=== PATIENT | female | born 1935 | race Caucasian/White ===

== ENCOUNTER 2016-06-08 07:55 | Observation (INO) ==
--- NOTE | 2016-06-05 21:33 | Discharge Summary ---
<JennyferjessieMelvi Palomo - Last Filed: 06/07/16 16:40> Date of Encounter: 06/07/16 - Discharge Diagnosis (1) Loosening of shoulder joint prosthesis Priority: Primary Status: Acute Qualifiers: Encounter type: initial encounter Qualified Code(s): T84.038A - Mechanical loosening of other internal prosthetic joint, initial encounter; Z96.619 - Presence of unspecified artificial shoulder joint (2) Chronic pain Priority: Secondary Status: Chronic Comments: Brandon 7.5/325 q 6 hours - Chronic pain medication. Hold this. Take Oxycodone 5mg for pain Qualifiers: Chronic pain type: other chronic pain Qualified Code(s): G89.29 - Other chronic pain - Discharge Medications Home Medications: OxyCODONE Immed Rel [Roxicodone 5 MG] 5 - 10 mg PO Q6HR PRN #40 tablet 06/05/16 [Rx] Aspirin 325 mg PO DAILY 06/08/16 [History] Carvedilol 3.125 mg PO BID 06/08/16 [History] Levothyroxine [Synthroid] 25 mcg PO 0630 06/08/16 [History] Allergies/Adverse Reactions: Allergies Erythromycin Base Allergy (Verified 06/08/16 08:37) Hives Penicillins Allergy (Verified 06/08/16 08:37) Rash estrogens, conjugated [From Premarin] Adverse Reaction (Verified 06/08/16 08:37) Migraine gentamicin [From Garamycin] Adverse Reaction (Verified 06/08/16 08:37) Headache Primary care physician: Hyacinth Mg - Patient Status Disposition: Home, Self-Care Condition: Good - Discharge Instructions Follow Up With: Zev Ahmadi MD [Partnered Physician] - Hyacinth Mg MD [Primary Care Provider] - Additional Instructions: Discharge Instructions: Total Shoulder Please call [facility] ([phone]), your Primary Care Physician, or report to the Emergency Room if you have any of the following symptoms: Nausea, vomiting, fever greater that 101.5, swelling, chest pain, shortness of breath, increased pain/redness/drainage/odor for your incision site, numbness/ tingling, or any other concerning symptoms. ACTIVITY: Always keep your arm in the sling. Do not raise your arm away from your body. Do not use your arm to help with getting in or out of bed. No weight bearing permitted. Only perform those exercises given to you by your therapist. MEDICATIONS: Upon discharge resume your home medications. Take all the medications as prescribed. Take a stool softener if taking narcotic pain medications. Stool softeners are only effective if you drink enough fluids. Drink 6-8 glass of water or fluids a day, unless this is not allowed for another health problem. Despite using stool softeners, if you haven't had a bowel movement in 3 days, please switch to a gentle laxative. Gentle laxatives are sold over the counter. You should have a bowel movement within 24 hours, if not call the office. You will be discharged from the hospital with a prescription for pain medication. You are encouraged to decrease the use of narcotic pain medication as tolerated. Should you require a refill, please call the office. [facility] prescribes narcotic pain medication for only 4-6 weeks after surgery. If you require pain medication beyond this time period, you may be referred to your Primary Care Physician or to the Pain Clinic for further evaluation. Plan ahead for refills on pain medication as many narcotics either need to be picked up at the office or mailed. It is best to call 48-72 hours in advance of needing a prescription refill so you don't run out of medication. To help control the post-operative pain, you may take NSAIDs (Aleve,Advil, Motrin, ibuprofen, naprosyn) or Tylenol as prescribed on the bottle in addition to the pain medication. ANTICOAGULATION (blood thinners): Continue your Aspirin, Lovenox or Coumadin as prescribed to help prevent a blood clot in the leg or in the lungs. As long as your incision remains dry and you tolerate the NSAIDs (Aleve, Advil, Motrin, ibuprofen, naprosyn), it is OK to use the NSAIDS while you are taking your anticoagulation medication. Should your incision start to drain, stop the NSAID and contact our office. Common symptoms of blood clot in the legs include: localized pain, swelling, calf tenderness, redness or discoloration of the skin. Blood clot in the lung symptoms include: shortness of breath, rapid pulse, sweating, and chest pain that worsens with deep breathing, coughing up blood, lightheadedness, and feelings of anxiety. If you experience any of these symptoms notify your physician immediately, go to the emergency room, or if having trouble breathing , call 911. WOUND CARE: Leave the dressing on for 7 days. You may change the dressing if it becomes saturated greater than 50%. You can shower but not a tub bath or submerge your incision in water. Wash your hands with antibacterial soap, rinse and dry prior to any wound care. If you have rebekah the visiting nurse or rehab facility can remove the stapes 10-14 days after surgery and place steri -strips across the wound. Leave the steri-strips in place until they fall off on their won. You may let water from the shower run on top of the steri- stirips. If you do not have a visiting nurse or rehab facility, you will need to return to the office at 10-14 days for the rebekah to be removed. FOLLOW-UP: Please follow up with your surgeon in the orthopedic clinic, as scheduled - Hospital Course Hospital course: Ms. Bui is a 80 year old female - Time Spent with Patient Total time spent providing and/or coordinating discharge services: <Zev Ahmadi - Last Filed: 06/09/16 08:19> Date of Encounter: 06/09/16 Time of Encounter: 08:19 - Discharge Diagnosis (1) Loosening of shoulder joint prosthesis Priority: Primary Status: Acute Qualifiers: Encounter type: subsequent encounter Qualified Code(s): T84.038D - Mechanical loosening of other internal prosthetic joint, subsequent encounter; Z96.619 - Presence of unspecified artificial shoulder joint (2) Chronic pain Priority: Secondary Status: Chronic Qualifiers: Chronic pain type: other chronic pain Qualified Code(s): G89.29 - Other chronic pain (3) Epistaxis Priority: Secondary Status: Acute Primary care physician: Hyacinth Mg - Patient Status Functional capacity at discharge: independent ambulation Overall status at discharge: patient is progressing back to baseline - Hospital Course Hospital course: Ms. Bui is a 80 year old female The patient had an uneventful postoperative course. They received antibiotics and physical therapy and were discharged in stable condition. There will follow -up in the office in 2 weeks. - Time Spent with Patient Total time spent providing and/or coordinating discharge services:
[2016-06-08] MEDS ORDERED: Ringers Solution, Lactated 1,000 ML IVC SCH ×4 (08:15→12:32)
--- NOTE | 2016-06-08 08:15 | Anesthesia Evaluation PreOp ---
Date of Encounter: 06/08/16 - Past History Alcohol Use: none Drug use: none Medications and Allergies HYDROcodone/Acet 5/325 mg [[place]el 5-325 mg] 1 tab PO Q4H PRN #15 tab 06/05/16 [Rx ] OxyCODONE Immed Rel [Roxicodone 5 MG] 5 - 10 mg PO Q6HR PRN #40 tablet 06/05/16 [Rx] Allergies Erythromycin Base Allergy (Verified 05/07/15 14:38) Hives Penicillins Allergy (Verified 05/07/15 14:38) Rash estrogens, conjugated [From Premarin] Adverse Reaction (Verified 05/07/15 14:38) Migraine gentamicin [From Garamycin] Adverse Reaction (Verified 05/07/15 14:38) Headache Anesthesia Results - Labs Laboratory Tests 06/05/16 06/05/16 06/05/16 09:37 09:37 09:37 WBC 9.5 Hgb 12.4 Hct 37.7 Plt Count 199 INR 1.2 Sodium 139 Potassium 3.9 Chloride 107 Carbon Dioxide 22 BUN 25 H Creatinine 0.96
--- NOTE | 2016-06-08 08:23 | Anesthesia Evaluation PreOp ---
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) Other Medical History: Other (Breast CA) Anesthesia History: No Prior Anesthetic Complications, Past Anesthesia (Left MRM , Pacemaker, C/S, GB, Right TSR) : No Alcohol Use: none Drug use: none Medications and Allergies HYDROcodone/Acet 5/325 mg [[place] 5-325 mg] 1 tab PO Q4H PRN #15 tab 06/05/16 [Rx ] OxyCODONE Immed Rel [Roxicodone 5 MG] 5 - 10 mg PO Q6HR PRN #40 tablet 06/05/16 [Rx] Allergies Erythromycin Base Allergy (Verified 05/07/15 14:38) Hives Penicillins Allergy (Verified 05/07/15 14:38) Rash estrogens, conjugated [From Premarin] Adverse Reaction (Verified 05/07/15 14:38) Migraine gentamicin [From Garamycin] Adverse Reaction (Verified 05/07/15 14:38) Headache - Meds/Allergy Pre-op Review Medications Reviewed: Yes Allergies Reviewed: Yes Beta Blockers on Current Med List: No Anesthesia Results - Labs Laboratory Tests 06/05/16 06/05/16 06/05/16 09:37 09:37 09:37 WBC 9.5 Hgb 12.4 Hct 37.7 Plt Count 199 INR 1.2 Sodium 139 Potassium 3.9 Chloride 107 Carbon Dioxide 22 BUN 25 H Echo 02/02/16 EF - 60% Min valvular dx - Imaging EKG: image reviewed (Electronic atria pacemaker) Anesthesia Exam O2 Sat Height 1.71 m Height 1.71 m Weight 64.41 kg Weight 64.41 kg O2 Sat by Pulse Oximetry 99 Vital Signs Temp Pulse Resp BP Pulse Ox 98.1 F 89 18 115/73 99 06/08/16 08:10 06/08/16 08:10 06/08/16 08:10 06/08/16 08:10 06/08/16 08:10 - HEENT Pupil (Motor): Pupils equal, EOMI Mallampati: II Teeth: Normal (Loose 3rd Left upper tooth) Oral Opening: Greater than 3 - UNDER WATER ASSISTANT LOC: Oriented UNDER WATER ASSISTANT Motor: Normal LLE, Normal Face, Deficit RUE (Slight Weakness), Deficit RLE ( Slight Weakness) UNDER WATER ASSISTANT Sensory: Normal: RUE, LUE, RLE, LLE, Face - Cardiac Rhythm: Regular Murmur: None JVD: No Carotid Bruit: No - Pulmonary Breath Sounds: bilateral Clear Respiratory Effort: Symmetrical Anesthesia Assess/Plan ASA Score: 3 Modified Michael Scale for Level of Consciousness: Cooperative, oriented, and tranquil Anesthetic Plan: General, Regional (Right Brachial Plexus block) Autologous Blood: Yes Monitoring Plan: Standard Monitors Recovery Plan: PACU
[2016-06-08] MEDS ORDERED: Lidocaine 1% 20 ML MDV ID ONE (08:31)
[2016-06-08] MEDS ORDERED: CeFAZolin Pre 2,000 MG/100 ML 2,000 MG/100 ML BAG IVPB ONE (08:31)
--- NOTE | 2016-06-08 08:33 | History & Physical Report ---
Date of Encounter: 06/08/16 Time of Encounter: 08:32 24 Hour HP Update - Instructions Instructions: If the History and Physical is less than 30 days old and was completed prior to A.M. admission and or procedure and has NOT been updated on calendar day of procedure please complete this update prior to performing procedure. - Update Patient reports changes in Medical Condition: No Changes in assessment/condition: No Changes in Medication: No Preop tests/diagnostics Reviewed: No Pre-Op MRSA Screen: Negative Surgery Remains Indicated: Yes Consent for Planned Operative Procedure(s) Verified: Yes - Pre-Operative Checklist Preoperative Checklist Indicated: No Prophylactic Antibiotic Ordered: Yes Is VTE Prophylaxis Indicated?: Yes
[2016-06-08] MEDS ORDERED: Clindamycin 900 MG/50 ML 900 MG/50 ML IV.SOLN IVPB ONE (08:51)
[2016-06-08] MEDS ORDERED: *HR* FentaNYL (PF) 100 MCG/2 ML VIAL ONE (08:52)
[2016-06-08] MEDS ORDERED: Albuterol 2.5 MG/3 ML NEBULIZER ONE (08:53)
[2016-06-08] MEDS ORDERED: *HR* Midazolam HCl 2 MG/2 ML VIAL ONE (08:53)
[2016-06-08] MEDS ORDERED: *HR* Propofol 200 MG/20 ML VIAL IVP ONE (08:53)
[2016-06-08] MEDS ORDERED: Lidocaine -MPF 2% 2 ML VIAL ONE (08:54)
[2016-06-08] MEDS ORDERED: *HR* Succinylcholine 200 MG/10 ML VIAL IVP ONE (09:00)
[2016-06-08] MEDS ORDERED: ROPIVACAINE HCL/PF 0.5% 30 ML VIAL ONE (09:10)
--- NOTE | 2016-06-08 09:49 | Anesthesia Procedures ---
Date of Encounter: 06/08/16 Time of Encounter: 09:52 Procedures: Anesthesia - Nerve Block Procedure Date: 06/08/16 Time: 09:40 Checklist: Correct Patient Identifier, Correct procedure, History checked Correct side: Right Blood Thinner: No Monitor Applied: EKG, BP, Pulse Oximetry Supplemental Oxygen via Nasal Cannula (L/min): 2 Sedation: Versed (mg): 2 Sedation: Fentanyl (mcg): 1 Indication: Post Op Analgesia Pre-op Neuro Deficits: No Block Type: Supraclavicular Catheter placed: No Sterile Technique: Yes Ultrasound used: Yes Anatomy identified: Yes Visual spread of Local: Yes Blood on Needle Aspiration: No Smooth Injection of Local: Yes Pain with Injection of Local: No Prep: Chlorhexadine Needle: 22 x 50 mm Stimuplex Local: Ropivacaine Volume (cc): 30 Complications: None/effective block Vitals: VSS
[2016-06-08] MEDS ORDERED: *HR* Phenylephrine 10 MG/ML VIAL ONE (10:34)
[2016-06-08] MEDS ORDERED: *HR* Morphine 2 MG/ML SYRINGE IVP PRN (10:38)
[2016-06-08] MEDS ORDERED: *HR* Promethazine 25 MG/ML VIAL IVP PRN (10:38)
[2016-06-08] MEDS ORDERED: Ondansetron 4 MG/2 ML VIAL ONE (10:39)
[2016-06-08] MEDS ORDERED: Dexamethasone 4 MG/ML VIAL ONE (10:39)
--- NOTE | 2016-06-08 11:03 | Orthopedic Operative Note ---
Date of procedure: 06/08/16 Pre-op diagnosis: Aseptic loosening right humeral component right shoulder instability Post-op diagnosis: same Procedure: Procedure: Right Revision Total Shoulder replacement reverse humeral component Estimated blood loss: 200 cc Hardware: 9 humeral stem, 3 constrained poly-spacer Procedural Notes: Poly-wear loosening of humeral component. Shoulder instability Operative procedure: The patient was brought to the operating room and placed on the operating room table. The patient was placed in the modified beachchair position. All pressure points were padded appropriately. And the head was stabilized in the neutral position. The operative extremity was prepped and draped in the sterile surgical fashion. The patient received IV antibiotics prior to skin incision. A standard deltopectoral approach was made to the operative shoulder. Incision was made through the skin and subcutaneous tissue, through the old incision, hemo stasis was obtained with Bovie cautery. Using careful blunt dissection the cephalic vein was identified and mobilized medially. The deltopectoral interval was developed and the clavipectoral fascia was incised. An extensive debridement was performed, and the shoulder was dislocated. Patient noted to have significant poly-wear. Using an osteotome to clear out the soft tissue, the humeral component was gently removed. Glenoid component was evaluated and found to be secure. TThe humerus was reamed and broached up to its appropriate size 9 in 20 degrees of retroversion. Trial reduction found the shoulder to be relocatable. Trial components were removed, real implants were cemented in place after a distal cement restrictor was placed.. Trial reduction found the shoulder to be stable with the appropriate 3 constrained poly-. The trial implants were removed the real implants were seated and secured in the shoulder was reduced. The patient had excellent motion and excellent stability no shuck. The deep tissue was irrigated with pulse irrigation deltopectoral interval was closed with #2 PDS suture . Superficially the subcutaneous tissue was closed with 0 PDS suture, the skin was closed with Dermabond. The patient placed sterile dressing, postoperative brace extubated and transferred to the recovery room in stable condition. Anesthesia: GETA Surgeon: Zev Ahmadi Scientific Writer: Melvi Stephens Condition: stable Disposition: PACU
--- NOTE | 2016-06-08 11:48 | Anesthesia Evaluation Post Op ---
Date of Encounter: 06/08/16 Time of Encounter: 11:47 - Vital Signs Vital Signs: Vital Signs/O2 Sat, Most Current Temp Pulse Resp BP Pulse Ox 97.1 F L 60 16 133/69 95 06/08/16 11:18 06/08/16 11:38 06/08/16 11:38 06/08/16 11:38 06/08/16 11:38 - Lungs Lungs: Clear Ascult./Percussion - Airway Airway: Non-obstructed - Cardiovascular Regular Rate - Mental Status Mental Status: Alert & Oriented, Answers Appropriately - Pain Pain Scale: 0 Pain Scale used: Numeric (1 - 10) - Nausea Vomiting Nausea Vomiting: Not Present - Hydration Hydration: NPO, Has not voided - Discharge PostOp Status: Transfer Patient to floor
[2016-06-08 12:18] LABS: Hematocrit 30.1 % (35.3-44.9)
[2016-06-08 12:23] LABS: Hemoglobin 9.8 g/dL (11.5-15.4)
[2016-06-08] MEDS ORDERED: Sennosides 8.6 MG TABLET PO PRN (12:32)
[2016-06-08] MEDS ORDERED: NON-FORMULARY MEDICATION 1 EACH EACH (Carvedilol [Carvedilol] 3.125 MG) PO PRN (12:32)
[2016-06-08] MEDS ORDERED: MOM Conc 10 ML UD.LIQ PO PRN (12:32)
[2016-06-08] MEDS ORDERED: Naloxone 0.4 MG/ML INJ IVP PRN (12:32)
[2016-06-08] MEDS ORDERED: *HR* OxyCODONE Immed Rel 5 MG TABLET PO PRN (12:32)
[2016-06-08] MEDS ORDERED: Ondansetron 4 MG/2 ML VIAL IVP PRN (12:32)
[2016-06-08] MEDS ORDERED: Temazepam 15 MG CAPSULE PO PRN (12:32)
[2016-06-08] MEDS ORDERED: Acetaminophen 325 MG TABLET PO PRN (12:32)
[2016-06-08] MEDS ORDERED: *HR* HYDROmorphone (PF) 1 MG/ML SYRINGE IVP PRN (12:32)
[2016-06-08] MEDS: *HR* OxyCODONE Immed Rel 5 MG TABLET PO PRN ×3 (13:40→22:43)
[2016-06-08] MEDS: Clindamycin 900 MG/50 ML 900 MG/50 ML IV.SOLN IVPB SCH (17:46)
[2016-06-08] MEDS ORDERED: *HR* Enoxaparin 30 MG/0.3 ML SYRINGE SQ SCH (18:00)
[2016-06-08] MEDS: *HR* Enoxaparin 30 MG/0.3 ML SYRINGE SQ SCH (18:36)
[2016-06-09] MEDS: Clindamycin 900 MG/50 ML 900 MG/50 ML IV.SOLN IVPB SCH (01:00)
[2016-06-09] MEDS: *HR* OxyCODONE Immed Rel 5 MG TABLET PO PRN ×2 (03:36→07:53)
[2016-06-09 05:37] LABS: Hematocrit 29.5 % (35.3-44.9); Hemoglobin 9.8 g/dL (11.5-15.4)
[2016-06-09] MEDS ORDERED: Levothyroxine 25 MCG TABLET PO SCH (06:30)
[2016-06-09] MEDS: *HR* Enoxaparin 30 MG/0.3 ML SYRINGE SQ SCH (07:54)
--- NOTE | 2016-06-09 08:20 | Orthopedics Progress Note ---
Date of Encounter: 06/09/16 Time of Encounter: 08:20 - Assessment and Plan (1) Loosening of shoulder joint prosthesis Current Visit: Yes Status: Acute Qualifiers: Encounter type: subsequent encounter Qualified Code(s): T84.038D - Mechanical loosening of other internal prosthetic joint, subsequent encounter; Z96.619 - Presence of unspecified artificial shoulder joint (2) Chronic pain Current Visit: Yes Status: Chronic Qualifiers: Chronic pain type: other chronic pain Qualified Code(s): G89.29 - Other chronic pain (3) Epistaxis Current Visit: No Status: Acute Subjective Interval history: Patient was seen this morning doing well without complaints. Afebrile vital signs stable. Operative extremity: Neurovascularly intact Dressing clean dry and intact Calves nontender Assessment and plan: Continue with postoperative care Hemoglobin 9.8 discharged today Objective Vital signs: Vital Signs Temp Pulse Resp BP Pulse Ox 06/09/16 07:15 98.2 F 67 14 181/71 96 06/09/16 04:45 98.5 F 61 15 105/58 92 L 06/09/16 01:08 98.3 F 65 15 99/57 92 L 06/08/16 20:38 98.3 F 62 15 123/66 93 L 06/08/16 16:26 97.7 F 69 16 131/69 95 06/08/16 13:00 97.5 F L 64 123/63 93 L 06/08/16 12:33 93 L 06/08/16 12:20 97.4 F L 62 13 131/71 93 L 06/08/16 11:58 62 16 137/69 93 L 06/08/16 11:48 97.0 F L 60 16 138/69 95 06/08/16 11:38 60 16 133/69 95 06/08/16 11:28 61 16 136/70 93 L 06/08/16 11:18 97.1 F L 63 16 147/80 97 06/08/16 09:58 62 16 139/71 97 06/08/16 09:40 63 16 153/72 96 06/08/16 09:32 64 16 179/80 99 06/08/16 09:05 18 115/73 99 Intake and Output 06/08/16 06/09/16 06/09/16 23:59 07:59 15:59 Intake Total 50 / 50 Balance 50 / 50 Intake: IV Fluids 50 / 50 Cleocin 900 MG/50 ML 900 50 / 50 mg In 50 ml @ 50 mls/hr IVPB Q8HR REPLACED BY [facility] Rx#: [id number] Other: # Voids 1 - Labs CBC & BMP: 06/09/16 05:01 Labs: Abnormal lab results Hgb 9.8 g/dL (11.5-15.4) L 06/09/16 05:01 Hct 29.5 % (35.3-44.9) L 06/09/16 05:01 - VTE Documentation of Mechanical Device: Venous foot pump, device Consult Discharge Plan - Plan Additional Instructions: Discharge Instructions: Total Shoulder Please call [facility] ([phone]), your Primary Care Physician, or report to the Emergency Room if you have any of the following symptoms: Nausea, vomiting, fever greater that 101.5, swelling, chest pain, shortness of breath, increased pain/redness/drainage/odor for your incision site, numbness/ tingling, or any other concerning symptoms. ACTIVITY: Always keep your arm in the sling. Do not raise your arm away from your body. Do not use your arm to help with getting in or out of bed. No weight bearing permitted. Only perform those exercises given to you by your therapist. MEDICATIONS: Upon discharge resume your home medications. Take all the medications as prescribed. Take a stool softener if taking narcotic pain medications. Stool softeners are only effective if you drink enough fluids. Drink 6-8 glass of water or fluids a day, unless this is not allowed for another health problem. Despite using stool softeners, if you haven't had a bowel movement in 3 days, please switch to a gentle laxative. Gentle laxatives are sold over the counter. You should have a bowel movement within 24 hours, if not call the office. You will be discharged from the hospital with a prescription for pain medication. You are encouraged to decrease the use of narcotic pain medication as tolerated. Should you require a refill, please call the office. [facility] prescribes narcotic pain medication for only 4-6 weeks after surgery. If you require pain medication beyond this time period, you may be referred to your Primary Care Physician or to the Pain Clinic for further evaluation. Plan ahead for refills on pain medication as many narcotics either need to be picked up at the office or mailed. It is best to call 48-72 hours in advance of needing a prescription refill so you don't run out of medication. To help control the post-operative pain, you may take NSAIDs (Aleve,Advil, Motrin, ibuprofen, naprosyn) or Tylenol as prescribed on the bottle in addition to the pain medication. ANTICOAGULATION (blood thinners): Continue your Aspirin, Lovenox or Coumadin as prescribed to help prevent a blood clot in the leg or in the lungs. As long as your incision remains dry and you tolerate the NSAIDs (Aleve, Advil, Motrin, ibuprofen, naprosyn), it is OK to use the NSAIDS while you are taking your anticoagulation medication. Should your incision start to drain, stop the NSAID and contact our office. Common symptoms of blood clot in the legs include: localized pain, swelling, calf tenderness, redness or discoloration of the skin. Blood clot in the lung symptoms include: shortness of breath, rapid pulse, sweating, and chest pain that worsens with deep breathing, coughing up blood, lightheadedness, and feelings of anxiety. If you experience any of these symptoms notify your physician immediately, go to the emergency room, or if having trouble breathing , call 911. WOUND CARE: Leave the dressing on for 7 days. You may change the dressing if it becomes saturated greater than 50%. You can shower but not a tub bath or submerge your incision in water. Wash your hands with antibacterial soap, rinse and dry prior to any wound care. If you have rebekah the visiting nurse or rehab facility can remove the stapes 10-14 days [address] surgery [address] steri -strips across the wound. Leave the steri-strips in place until they fall off on their won. You may let water from the shower run on top of the steri- stirips. If you do not have a visiting nurse or rehab facility, you will need to return to the office at 10-14 days for the rebekah to be removed. FOLLOW-UP: Please follow up with your surgeon in the orthopedic clinic, as scheduled Referrals: Zev Ahmadi MD [Partnered Physician] - Hyacinth Mg MD [Primary Care Provider] -
[2016-06-09] MEDS ORDERED: Aspirin 325 MG TABLET PO SCH (09:00)
[2016-06-09 11:12] VITALS: BP 101/54
== END 2016-06-09 11:45 | disposition home or self-care (01) | DRG 483 ==
LOC: SAMDAY 07:55 → 3NENU 12:42 → INTOOBSV 12:42
PROVIDERS: ADMIT Orthopaedic Surgery; ATTEND Orthopaedic Surgery